=== PATIENT | female | born 1995 | race Caucasian/White ===

== ENCOUNTER 2019-03-07 15:52 | Inpatient (IN) ==
[2019-03-07] MEDS ORDERED: KEFZOL 1 GM/D5W 1 GM/50 ML IVPB IV PRN (16:08)
[2019-03-07] MEDS ORDERED: ZOFRAN IV PRN (16:08)
[2019-03-07] MEDS ORDERED: AMPICILLIN 2 GM/NS 2 GM/100 ML IVPB IV ONE ×2 (16:08)
[2019-03-07] MEDS ORDERED: PEPCID IV PRN (16:08)
[2019-03-07] MEDS ORDERED: STADOL IV PRN (16:08)
[2019-03-07] MEDS ORDERED: PEPCID PO PRN (16:08)
[2019-03-07] MEDS ORDERED: PEPCID PO ONE (16:08)
[2019-03-07] MEDS ORDERED: TYLENOL PO PRN (16:08)
[2019-03-07] MEDS ORDERED: LR 500 ML IV ONE (16:08)
[2019-03-07] MEDS ORDERED: REGLAN PO ONE (16:08)
[2019-03-07 16:11] LABS: URINE SOURCE VOIDED
[2019-03-07] MEDS ORDERED: PITOCIN 30 UNITS/NS 30 UNIT/500 ML IV.SOLN IV SCH ×2 (16:15→18:00)
[2019-03-07 16:16] LABS: BILIRUBIN URINE NEGATIVE (NEGATIVE); BLOOD URINE NEGATIVE (NEGATIVE); CLARITY CLEAR (CLEAR); COLOR YELLOW; GLUCOSE URINE NEGATIVE (NEGATIVE); KETONE URINE TRACE mg/dL (NEGATIVE); LEUKOCYTES URINE 1+ (NEGATIVE); NITRITE URINE NEGATIVE (NEGATIVE); PH URINE 6.5; PROTEIN URINE TRACE mg/dL (NEGATIVE); SP GRAVITY URINE 1.015; UROBILINOGEN URINE 1 mg/dL
[2019-03-07] MEDS: LR 1,000 ML IV SCH ×2 (16:29→17:14)
[2019-03-07 16:33] LABS: UR AMPHETAMINES QUAL NONE DETECTED (NONE DETECT); UR BARBITUATES QUAL NONE DETECTED (NONE DETECT); UR BENZODIAZEPIN QUAL NONE DETECTED (NONE DETECT); UR CANNABINOIDS QUAL NONE DETECTED (NONE DETECT); UR COCAINE QUAL NONE DETECTED (NONE DETECT); UR METHADONE QUAL NONE DETECTED (NONE DETECT); UR METHAMPHETAMINE QUAL NONE DETECTED (NONE DETECT); UR OPIATES QUAL NONE DETECTED (NONE DETECT); UR OXYCODONE QUAL NONE DETECTED (NONE DETECT); UR PCP QUAL NONE DETECTED (NONE DETECT); UR PROPOXYPHENE QUAL NONE DETECTED (NONE DETECT); UR TCA QUAL NONE DETECTED (NONE DETECT)
[2019-03-07 16:35] LABS: BASO# 0.03 X1000 (0.0-0.2); BASO% 0.2 % (0.0-0.8); EOS# 0.14 X1000 (0.0-0.7); EOS% 1.1 % (0.0-10.0); HEMOGLOBIN 12.8 g/dL (12.0-16.0); IMM GRAN# 0.04 X1000 (0.0-0.04); IMM GRAN% 0.3 % (0.0-0.5); LYMPH% 20.5 % (20.5-51.1); MCH 30.5 PG (27-31); MCHC 34.6 g/dL (33-37); MCV 88.3 FL (81-99); MONO# 0.93 X1000 (0.11-0.59); MONO% 7.6 % (1.7-9.3); MPV 11.2 FL (7.4-10.4); NEUT# 8.56 X1000 (1.4-6.5); NEUT% 70.3 % (42.2-75.2); PLT 213 X1000 (130-400); RBC 4.19 XMIL (4.2-5.4); RDW 12.8 % (11.5-14.5)
[2019-03-07] MEDS ORDERED: NAROPIN 0.2% INJ ONE (16:45)
[2019-03-07] MEDS ORDERED: PITOCIN IM PRN ×2 (16:59→17:51)
[2019-03-07] MEDS ORDERED: FENTANYL-BUPIV-NS 2 MCG-0.1% 200 ML EPIDURAL SCH (17:00)
[2019-03-07] MEDS ORDERED: MORPHINE IV ONE (17:04)
[2019-03-07] MEDS ORDERED: XYLOCAINE-MPF 1% INJ ONE (17:05)
[2019-03-07] MEDS ORDERED: MORPHINE ONE (17:06)
[2019-03-07] MEDS ORDERED: NORCO-5 PO PRN (17:51)
[2019-03-07] MEDS ORDERED: BENADRYL PO PRN (17:51)
[2019-03-07] MEDS ORDERED: PERI MEDS (DERMOPLAST/NUPERCAINAL/TUCKS) MISC PRN (17:51)
[2019-03-07] MEDS ORDERED: ATARAX PO PRN (17:51)
[2019-03-07] MEDS ORDERED: HYDROXYZINE IM PRN (17:51)
[2019-03-07] MEDS ORDERED: AMBIEN PO PRN (17:51)
[2019-03-07] MEDS ORDERED: BENADRYL IV PRN (17:51)
[2019-03-07] MEDS ORDERED: XYLOCAINE-MPF 1% INJ PRN (17:51)
[2019-03-07] MEDS ORDERED: BOOSTRIX VACCINE IM ONE (17:51)
[2019-03-07] MEDS ORDERED: MINERAL OIL PO PRN (17:51)
[2019-03-07] MEDS ORDERED: CYTOTEC PO PRN (17:51)
[2019-03-07] MEDS ORDERED: M-M-R II VACCINE SUBQ ONE (17:51)
[2019-03-07] MEDS ORDERED: PITOCIN 20 UNITS/NS 20 UNITS/1,000 ML IV.SOLN IV SCH (18:00)
[2019-03-07] MEDS: NORCO-10 PO PRN (18:07)
[2019-03-07] MEDS: MOTRIN PO PRN (18:08)
--- NOTE | 2019-03-07 18:39 | HISTORY AND PHYSICAL ---
HISTORY OF PRESENT ILLNESS: The patient 23-year-old white female G3, P1, A1 who presents to labor and delivery with complaints of uterine contractions. The patient is 41 weeks and 1 day based on last menstrual period and an ultrasound performed at 22 and 5/7 weeks that confirmed her LMP. The patient has not been seen by an MD for her care. Besides the lack of care, the patient has also been treated for a substance abuse problem with Subutex. The patient is under the care of a physician for that. PAST MEDICAL HISTORY: Significant for substance abuse. PAST SURGICAL HISTORY: She had laparoscopy for a left ectopic . PAST OB HISTORY: G3, P1, A1. She is proven to 6 pounds 3 ounces. 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 FAMILY HISTORY: Unremarkable. REVIEW OF SYSTEMS: Significant for migraines. SOCIAL HISTORY: Tobacco use, a half pack per day. Alcohol use none. MEDICATIONS: Subutex 8 mg daily and vitamins. ALLERGIES: Bactrim. PHYSICAL EXAMINATION: VITAL SIGNS: Height 5 feet 1 inch, weight 142 pounds, temperature 97.2 degrees, pulse of 91, respirations 20, blood pressure 124/79. heart rate in the 130s. HEENT: Pupils equal, round, reactive to light, accommodation. Extraocular movements intact. Oropharynx clear. NECK: Supple. No thyromegaly. LUNGS: Clear to auscultation. HEART: Regular rate and rhythm. ABDOMEN: Gravid. Patient with distress of uterine contractions. PELVIC: Cervix was 6 cm, 90% effaced, -1 station with bulging bag. EXTREMITIES: No clubbing, cyanosis, or edema noted. NEUROLOGIC: Cranial nerves 2-12 grossly intact. Motor 5/5. DTRs 2+ bilaterally. ASSESSMENT/PLAN: A 23-year-old white female, G3, P1, A1 at 41 and 1/7 weeks in active labor. Anticipate vaginal delivery soon. Patient will be given IV antibiotics for group B strep prophylaxis due to unknown status. We will also obtain lab panel. cc: Vincent Lord III, MD
--- NOTE | 2019-03-07 18:53 | OPERATIVE NOTE ---
PROCEDURE DATE: 03/07/2019 DELIVERY NOTE: The patient progressed to complete and pushing, had a spontaneous vaginal delivery of a male infant, 6 pounds 4 ounces, with Apgars of 8 and 10 at 1659 on 03/07/2019, over a second- degree midline episiotomy. Infant was bulb suctioned of nose and mouth. Cord blood sample was obtained at this time. Placenta was delivered intact with 3-vessel cord. Second-degree midline episiotomy was repaired with 2-0 and 3-0 chromic. ANESTHESIA: 10 mL of 1% lidocaine. ESTIMATED BLOOD LOSS: 150 mL. COUNTS: Correct x2. cc: Vincent Lord III, MD
[2019-03-07] MEDS ORDERED: AMPICILLIN 1 GM/NS 1 GM/50 ML IVPB IV SCH ×2 (20:09)
[2019-03-07] MEDS ORDERED: PERICOLACE PO SCH (21:00)
[2019-03-08] MEDS: NORCO-10 PO PRN (00:15)
[2019-03-08] MEDS: MOTRIN PO PRN ×3 (02:05→17:48)
[2019-03-08 05:58] LABS: BASO# 0.03 X1000 (0.0-0.2); BASO% 0.2 % (0.0-0.8); EOS# 0.16 X1000 (0.0-0.7); EOS% 1.2 % (0.0-10.0); HEMATOCRIT 31.9 % (37.0-47.0); HEMOGLOBIN 10.5 g/dL (12.0-16.0); IMM GRAN# 0.04 X1000 (0.0-0.04); IMM GRAN% 0.3 % (0.0-0.5); LYMPH# 2.41 X1000 (1.2-3.4); LYMPH% 18.7 % (20.5-51.1); MCH 29.8 PG (27-31); MCHC 32.9 g/dL (33-37); MCV 90.6 FL (81-99); MONO# 0.95 X1000 (0.11-0.59); MONO% 7.4 % (1.7-9.3); MPV 11.2 FL (7.4-10.4); NEUT# 9.31 X1000 (1.4-6.5); NEUT% 72.2 % (42.2-75.2); PLT 191 X1000 (130-400); RBC 3.52 XMIL (4.2-5.4)
--- NOTE | 2019-03-08 07:26 | OB/GYN PROGRESS NOTE ---
Progress Note OB - . Patient Problems: Current Active Problems Problem Status Onset (spontaneous vaginal delivery) Acute OB Progress Note: Vital Signs - 24 hr 03/07/19 16:38 03/07/19 19:10 03/07/19 19:45 Temperature 97.2 F L 97.1 F L Pulse Rate 91 H 73 72 Respiratory Rate 20 20 20 Blood Pressure 124/79 101/56 107/58 O2 Sat by Pulse Oximetry 98 97 97 03/08/19 00:08 03/08/19 05:11 03/08/19 06:57 Temperature 96.8 F L 96.8 F L 97 F L Pulse Rate 77 71 71 Respiratory Rate 20 18 20 Blood Pressure 102/57 107/55 97/68 O2 Sat by Pulse Oximetry 97 97 Laboratory Results - last 24 hr 03/07/19 03/07/19 03/07/19 16:00 16:00 16:20 WBC RBC Hgb Hct MCV MCH MCHC RDW Std Deviation Plt Count MPV Immature Gran % (Auto) Neut % (Auto) Lymph % (Auto) Bonner % (Auto) Eos % (Auto) Baso % (Auto) Immature Gran # (Auto) Neut # (Auto) Lymph # (Auto) Bonner # (Auto) Eos # (Auto) Baso # (Auto) Urine Source VOIDED Urine Color YELLOW Urine Clarity CLEAR Urine pH 6.5 Ur Specific Simms 1.015 Urine Protein TRACE A Urine Ketones TRACE Urine Blood NEGATIVE Urine Nitrite NEGATIVE Urine Bilirubin NEGATIVE Urine Urobilinogen 1 Urine WBC 1+ A Urine Glucose NEGATIVE Urine Opiates Screen NONE DETECTED Ur Oxycodone Screen NONE DETECTED Urine Methadone Screen NONE DETECTED U Propoxyphene Qual NONE DETECTED Ur Barbituates Screen NONE DETECTED Ur Tricyclics Screen NONE DETECTED Ur Phencyclidine Scrn NONE DETECTED Ur Amphetamines Screen NONE DETECTED U Methamphetamines Scrn NONE DETECTED U Benzodiazepines Scrn NONE DETECTED Urine Cocaine Screen NONE DETECTED U Cannabinoids Screen NONE DETECTED RPR NON-REACTIVE 03/07/19 03/08/19 16:20 05:20 WBC 12.20 H 12.90 H RBC 4.19 L 3.52 L Hgb 12.8 10.5 L D Hct 37.0 31.9 L MCV 88.3 90.6 MCH 30.5 29.8 MCHC 34.6 32.9 L RDW Std Deviation 12.8 13.0 Plt Count 213 191 MPV 11.2 H 11.2 H Immature Gran % (Auto) 0.3 0.3 Neut % (Auto) 70.3 72.2 Lymph % (Auto) 20.5 18.7 L Bonner % (Auto) 7.6 7.4 Eos % (Auto) 1.1 1.2 Baso % (Auto) 0.2 0.2 Immature Gran # (Auto) 0.04 0.04 Neut # (Auto) 8.56 H 9.31 H Lymph # (Auto) 2.50 2.41 Bonner # (Auto) 0.93 H 0.95 H Eos # (Auto) 0.14 0.16 Baso # (Auto) 0.03 0.03 Urine Source Urine Color Urine Clarity Urine pH Ur Specific Simms Urine Protein Urine Ketones Urine Blood Urine Nitrite Urine Bilirubin Urine Urobilinogen Urine WBC Urine Glucose Urine Opiates Screen Ur Oxycodone Screen Urine Methadone Screen U Propoxyphene Qual Ur Barbituates Screen Ur Tricyclics Screen Ur Phencyclidine Scrn Ur Amphetamines Screen U Methamphetamines Scrn U Benzodiazepines Scrn Urine Cocaine Screen U Cannabinoids Screen RPR S: Patient without complaints. Denied fever, chills, N/V, SOB, or chest pain. Voiding without difficulty. No pain. Lochia as much as a period. Desires to breastfeed. Desires Depo Provera for control. O: Gen: NAD CV: RRR Pulm: CTAB; no rhonchi, wheezing, or rales Abd: soft, NTTP, non-distended; fundus firm and below umbilicus Labs: reviewed (including labs from prior triage visits) A&P: 23yo s/p at 41w1d, 1. PPD#1 -No concerns -Discussed risks and benefits of with patient taking Subutex 8mg daily. Patient opts to breastfeed -Depo Provera for control prior to discharge home 2. No care - consultation 3. Substance abuse -Cont. Subutex 8mg daily -CLINICAL BIOCHEMICAL GENETICIST search verified 4. Tob use (1/2 PPD)
[2019-03-08] MEDS ORDERED: NORCO-5 PO PRN (07:28)
[2019-03-08] MEDS ORDERED: SUBUTEX SL SCH (09:00)
[2019-03-08] MEDS ORDERED: PRECARE PO SCH (09:00)
[2019-03-08] MEDS ORDERED: DEPO-PROVERA IM ONE (09:00)
[2019-03-08 16:29] VITALS: BP 109/77
--- NOTE | 2019-03-09 03:19 | DISCHARGE SUMMARY ---
ADMISSION DATE: 03/07/2019 DISCHARGE DATE: 03/08/2019 DISCHARGE DIAGNOSIS: 1. A 23-year-old G3, P2-0-1-2 status post spontaneous vaginal delivery, day #1. 2. No care. The patient not formally evaluated by social media designer. 3. Opioid abuse, on Subutex 8 mg daily. 4. Tobacco use, half pack per day. HOSPITAL COURSE: This is a 23-year-old now G3, P2-0-1-2 who presented at 41 weeks and 1 day in active labor. The patient had no care. The patient also had a history of opioid abuse and was on Subutex 8 mg daily. This was verified via DEFENCE FORCE SENIOR OFFICER search. The patient also had a history of tobacco use, which she smokes half pack per day. The patient's hospital course was unremarkable. She had a spontaneous vaginal delivery on 03/07/2019. She delivered a live male , weight 6 pounds 4 ounces. The patient also had a second-degree midline episiotomy in which it was subsequently repaired. The patient course was unremarkable. The patient had received Depo- Provera for contraception on day #1. During the course of her stay, patient strongly wanted to leave. She reports that she needed to take care of her child and did not have any family or friends to take care of her child. The patient, however, reported earlier that day that her mother was taking care of her child. Social Work consultation was requested. However, patient ultimately left against medical advice. LABORATORY: Predelivery hemoglobin and hematocrit 12.8/37, post delivery, 10.5/31.9, platelet 191,000. UDS negative. RPR nonreactive. cc: MD BULMARO Dowd III
== END 2019-03-08 18:55 | disposition left against medical advice (07) | DRG 806 ==
LOC: P.OPLD 15:52 → P.LD 15:55
PROVIDERS: ADMIT Obstetrics & Gynecology; ATTEND Obstetrics & Gynecology